=== PATIENT | male | born 2005 | race Caucasian/White ===

== ENCOUNTER 2025-02-13 14:48 | Emergency (ER) | payer OTHER ==
[~2025-02-13] VITALS: Ht 172.7 cm; Wt 86.2 kg
== END 2025-02-13 15:37 | disposition home or self-care (01) ==
LOC: ER 14:48
DX: T63.441A Toxic effect of venom of bees, accidental (unintentional), initial encounter (principal); R20.0 Anesthesia of skin
CPT/HCPCS: 99282